=== PATIENT | female | born 1960 | race Hispanic/Latino ===

== ENCOUNTER 2022-03-04 05:30 | Emergency (ER) | payer MEDICAID ==
[~2022-03-04] VITALS: Ht 154.9 cm; Wt 115.7 kg
[2022-03-04] MEDS ORDERED: IPRATROPIUM/ALBUTEROL SULFATE 3 ML SOLUTION IH ONE (06:30)
[2022-03-04 06:32] LABS: BASOPHILS % (AUTO) 0.3 % (0.0-5.0); EOSINOPHILS % (AUTO) 1.5 % (0.0-8.0); LYMPHOCYTES % (AUTO) 18.4 % (21.0-51.0); MEAN CORPUSCULAR HEMOGLOBIN 26.9 pg (27.0-33.0); MEAN CORPUSCULAR HGB CONC 30.8 g/dL (32.0-36.0); MEAN CORPUSCULAR VOLUME 87.4 fL (79-99); MONOCYTES % (AUTO) 6.1 % (3.0-13.0); NEUTROPHILS % (AUTO) 73.4 % (40.0-77.0); PLATELET COUNT (AUTO) 334 K/uL (130-400); RED BLOOD CELL COUNT(AUTO) 4.46 MIL/uL (4.00-5.50); RED CELL DISTRIBUTION WIDTH 15.1 % (11.0-15.5); WHITE BLOOD COUNT (AUTO) 12.1 K/uL (4.8-10.8)
[2022-03-04 06:49] LABS: ALBUMIN 3.2 g/dL (3.5-5.0); BILIRUBIN,TOTAL 0.5 mg/dL (0.2-1.0); CREATININE 0.8 mg/dL (0.5-1.5); POTASSIUM 3.9 mmol/L (3.5-5.1); TOTAL PROTEIN, SERUM 7.4 g/dL (6.0-8.3)
[2022-03-04] MEDS ORDERED: APAP/CODEINE 120/12MG 5ML PO ONE (07:30)
[2022-03-04] MEDS ORDERED: SOLU-MEDROL 125MG VIAL IVP ONE (07:30)
[2022-03-04] MEDS ORDERED: FUROSEMIDE 20MG VIAL IV ONE (07:30)
[2022-03-04] MEDS ORDERED: 0.9%NACL 1000ML 1,000 ML IV ONE (08:30)
[2022-03-04] MEDS ORDERED: ALBUTEROL 0.083% 2.5 MG/3 ML INH IH ONE (08:30)
[2022-03-04 09:22] VITALS: BP 111/55
[2022-03-04] MEDS ORDERED: PRED5TAB PO (09:37)
[2022-03-04] MEDS ORDERED: ALBU18HF7 IH (09:37)
[2022-03-04] MEDS ORDERED: AZIT250T9 PO (09:37)
[2022-03-04] MEDS ORDERED: BENZ-39 PO (09:39)
[2022-03-04] MEDS ORDERED: HYDR12.54 PO (14:46)
[2022-03-04] MEDS ORDERED: METF-446 PO (14:46)
[2022-03-04] MEDS ORDERED: IBUP-2070 PO (14:46)
[2022-03-04] MEDS ORDERED: AMLO2.5T4 PO (14:46)
[2022-03-04] MEDS ORDERED: ALBU0.63 IH (14:46)
[2022-03-04] MEDS ORDERED: ATOR40TA69 PO (14:46)
[2022-03-04] MEDS ORDERED: LATA7.5D OP (14:46)
[2022-03-04] MEDS ORDERED: LISI40TA9 PO (14:46)
[2022-03-04] MEDS ORDERED: KETO1DRO3 OP (14:46)
== END 2022-03-04 10:00 | disposition home or self-care (01) ==
LOC: EDH 05:30
DX: J06.9 Acute upper respiratory infection, unspecified (principal); Z20.822 Contact with and (suspected) exposure to COVID-19; M19.90 Unspecified osteoarthritis, unspecified site; E11.9 Type 2 diabetes mellitus without complications; E78.00 Pure hypercholesterolemia, unspecified; I10 Essential (primary) hypertension; Z98.890 Other specified postprocedural states
CPT/HCPCS: 36415; 71045; 80053; 83880; 84484; 85025; 85378; 87635; 87804 ×2; 93005; 94640 ×2; 96361; 96374; 96375; 99285; C9803; J1940; J2930; J7030